=== PATIENT | male | born 1985 | race Caucasian/White ===

== ENCOUNTER 2019-05-19 13:55 | Emergency (ER) | payer MEDICAID ==
[2019-05-19] MEDS: KETOROLAC 30 MG INJ IV (15:59)
== END 2019-05-19 17:34 | disposition home or self-care (01) ==
LOC: E/R 13:55
DX: R07.9 Chest pain, unspecified (principal); R40.2142 Coma scale, eyes open, spontaneous, at arrival to emergency department; R40.2252 Coma scale, best verbal response, oriented, at arrival to emergency department; R40.2362 Coma scale, best motor response, obeys commands, at arrival to emergency department
CPT/HCPCS: 36415; 71045; 80048; 84484; 85025; 93005; 99285-25